=== PATIENT | male | born 1985 | race American Indian/Alaskan Native ===

== ENCOUNTER 2020-07-22 09:15 | Emergency (ER) | payer BC ==
[2020-07-22 09:28] VITALS: BP 148/96
[2020-07-22] MEDS ORDERED: LIDOCAINE (1%) 10 MG/1 ML VIAL 20 ML MDV ONE (09:29)
[2020-07-22] MEDS ORDERED: LIDOCAINE (1%) 10 MG/1 ML VIAL 20 ML MDV INFILTRATI ONE (09:32)
--- NOTE | 2020-07-22 09:51 | Emergency Department Report ---
Abscess Boil HPI - HPI Chief Complaint: Skin/Abscess/Foreign Body Stated Complaint: ABSCESS ON BACK Time Seen by Provider: 07/22/20 09:31 Duration: >1 Week Location: Back Severity: Mild History: Yes Pain, Yes Purulent Drainage, No Fever, No Numbness, No Foreign Body, No Previous History (Slight), No Insect Bite HPI: Complains of abscess on back for about 7 to 10 days, had some slight drainage but now has stopped. No fevers or systemic complaints. Home Medications: Previous Rx's Medication Instructions Recorded Last Taken Type Sulfamethoxazole/Trimethoprim 1 each PO BID #20 tablet 07/22/20 Unknown Rx [Bactrim DS TAB] Allergies/Adverse Reactions: Allergies Allergy/AdvReac Type Severity Reaction Status Date / Time No Known Allergies Allergy Unverified 07/22/20 09:25 ED Review of Systems ROS: Stated complaint: ABSCESS ON BACK Other details as noted in HPI Comment: All other systems reviewed and negative ED Past Medical Hx - Past Medical History Previous Medical History?: No Additional medical history: pre-dm - Surgical History Past Surgical History?: No - Social History Smoking Status: Never Smoker Substance Use Type: None - Medications Home Medications: Home Medications Medication Instructions Recorded Confirmed Last Taken Type Sulfamethoxazole/Trimethoprim 1 each PO BID #20 tablet 07/22/20 Unknown Rx [Bactrim DS TAB] ED Abscess Boil Physical Exam - Exam General: Vital signs noted. No distress. Alert and acting appropriately. Size: 3 cm Exam: Yes Tenderness, Yes Fluctuance (Minimal), Yes Surrounding Cellulites/Erythema (Minimal), Yes Normal Neurologic Exam, Yes Normal Circulation, No Lymphangitis, No Crepitation, No Heart Murmur I & D Note - I & D Note I & D Note: Area was prepped and draped in the usual sterile fashion, Betadine u sed, 1% lidocaine plain, 2 cc injected for field block. Small stab incision made with 11 blade and abscess probed. There was minimal purulent/bloody drainage. Dressing was placed. ED Course Vital Signs 07/22/20 09:25 Temperature 98.1 F Pulse Rate 83 Respiratory 18 Rate Blood Pressure 148/96 O2 Sat by Pulse 99 Oximetry Critical care attestation.: If time is entered above; I have spent that time in minutes in the direct care of this critically ill patient, excluding procedure time. ED Medical Decision Making - Medical Decision Making Patient presents with abscess on back x7 to 10 days. On my exam there is about a 3 cm abscess noted just in the area of the inferior left scapula. Minimal surrounding erythema. No obvious drainage. I&D was performed after discussion with patient of antibiotics versus I&D trial. Minimal drainage was noted. Patient be placed on antibiotics and can use supportive care including warm compresses at home. Follow-up PCP, return if worse. - Differential Diagnosis Abscess, cellulitis, cyst ED Disposition Clinical Impression: Abscess or cellulitis of back Disposition: DC-01 TO HOME OR SELFCARE Is pt being admited?: No Condition: Good Instructions: Skin Abscess, Cellulitis, Adult Prescriptions: Sulfamethoxazole/Trimethoprim [Bactrim DS TAB] 1 each PO BID #20 tablet Referrals: CANDACE NEWTON MD [Staff Physician] - 3-5 Days Time of Disposition: 09:48
== END 2020-07-22 10:18 | disposition home or self-care (01) ==
LOC: ED 09:15
DX: L03.312 Cellulitis of back [any part except buttock and flank] (principal); Z79.899 Other long term (current) drug therapy
CPT/HCPCS: 99282